=== PATIENT | male | born 1940 | race Caucasian/White ===

== ENCOUNTER 2019-11-29 06:05 | Observation (INO) | payer OTHER ==
[2019-11-22 16:43] LABS: BASOPHILS % (AUTO) 0.8 % (0-1); EOSINOPHILS # (AUTO) 0.1 X10'3 (0-0.9); EOSINOPHILS % (AUTO) 2.4 % (0-6); LYMPHOCYTES # (AUTO) 1.2 X10'3 (1.1-4.8); LYMPHOCYTES % (AUTO) 26.7 % (21-51); MEAN CORPUSCULAR HEMOGLOBIN 34.2 PG (27.0-31.0); MEAN CORPUSCULAR VOLUME 100.5 FL (78-98); MEAN PLATELET VOLUME 7.6 FL (7.4-10.4); MONOCYTES # (AUTO) 0.4 X10'3 (0-0.9); MONOCYTES % (AUTO) 8.7 % (2-12); NEUTROPHILS # (AUTO) 2.9 X10'3 (1.8-7.7); NEUTROPHILS % (AUTO) 61.4 % (42-75); PRE OP HEMATOCRIT 42.6 % (42.0-52.0); PRE OP HEMOGLOBIN 14.5 g/dL (14.0-17.9); PRE OP PLATELET COUNT 109 X10'3 (140-440); RED BLOOD COUNT 4.23 X10'6 (4.70-6.10); RED CELL DISTRIBUTION WIDTH 15.4 % (11.5-14.5)
[2019-11-22 16:54] LABS: PRE OP INR 1.2 INR; PRE OP PROTIME 11.9 SECONDS (9.0-12.0)
[2019-11-22 17:05] LABS: ALBUMIN 3.2 G/DL (3.4-5.0); ALKALINE PHOSPHATASE 83 IU/L (46-116); BLOOD UREA NITROGEN 14 MG/DL (7-18); BUN/CREATININE RATIO 11.5 (5.4-32.0); CALCIUM 9.5 MG/DL (8.5-10.1); CHLORIDE 104 MMOL/L (99-107); CREATININE 1.22 MG/DL (0.60-1.10); PRE OP ALT 38 U/L (30-65); PRE OP ANION GAP 6 (8-16); PRE OP AST 36 U/L (10-37); PRE OP BILIRUB, TOTAL 2.1 MG/DL (0.0-1.0); PRE OP GLUCOSE 99 MG/DL (70-104); PRE OP POTASSIUM 4.9 MMOL/L (3.4-5.1); PRE OP SODIUM 139 MMOL/L (135-145); TOTAL PROTEIN 6.5 G/DL (6.4-8.2); eGFR 58 ML/MIN
[~2019-11-29] VITALS: Ht 182.9 cm; Wt 105.0 kg
[2019-11-29] VITALS (19 sets, daily range): BP systolic 91–151; BP diastolic 52–99
[~2019-11-29 06:05] MED LIST: APIX5TAB3 PO; CHOL200012 PO; DILT-88 PO; MULT-1141 PO; acetaminophen 325mg tablet PO ONE; ceFAZolin 2gm in dextrose, iso 50 ML IV ONE; celeCOXIB 100mg capsule PO ONE; famotidine 20mg tablet PO ONE; gabapentin 300mg capsule PO ONE; ketorolac trometh. 30mg/ml inj. ONE; metoclopramide 5 mg/ml inj IV ONE; oxyCODONE SR 10mg (sust. release) tab -2 tabs (20mg) PO ONE; ringers solution, lacted 1,000 ML IV SCH; tranexamic acid inj. 1,000 MG in normal saline 100 ML IV ONE; vancomycin 1,500 MG in NS 500ml IV soln IV ONE
[2019-11-29] MEDS ORDERED: cloNIDine hcl/PF 100mcg/ml inj ONE (06:06)
[2019-11-29] MEDS ORDERED: epiNEPHrine 1 mg/ml inj ONE (06:06)
[2019-11-29] MEDS ORDERED: ROPIVAcaine 0.5% (5mg/ml) 30ml vial ONE (06:06)
[2019-11-29] MEDS ORDERED: vancomycin 1,000mg inj ONE (06:06)
[2019-11-29] MEDS ORDERED: bisacodyl 10mg suppository rectal RC PRN (06:40)
[2019-11-29] MEDS ORDERED: acetaminophen 325mg tablet PO PRN (06:40)
[2019-11-29] MEDS ORDERED: diphenhydrAMINE 25mg capsule PO PRN ×2 (06:40)
[2019-11-29] MEDS ORDERED: HYDROmorphone inj. 0.5 MG/0.5 ML DISP.SYRIN IV PRN (06:40)
[2019-11-29] MEDS ORDERED: oxyCODONE/APAP 10/325mg tablet PO PRN ×2 (06:40)
[2019-11-29] MEDS ORDERED: magnesium hydroxide 30ml (MOM) UD suspension PO PRN (06:40)
[2019-11-29] MEDS ORDERED: ondansetron/PF 4mg/2ml inj IV PRN ×2 (06:40→07:55)
[2019-11-29] MEDS ORDERED: HYDROmorphone 1 mg/ml syringe IV PRN (06:40)
[2019-11-29] MEDS ORDERED: LIDOcaine 1% (10mg/ml) 2ml vial ONE (06:41)
[2019-11-29] MEDS ORDERED: MIDAZolam 5mg/5ml vial ONE (07:15)
[2019-11-29] MEDS ORDERED: fentaNYL/PF 50MCG/1 ML 2ML syringe ONE (07:15)
[2019-11-29] MEDS ORDERED: ringers solution, lacted 1,000 ML IV SCH (07:53)
[2019-11-29] MEDS ORDERED: ROPIVAcaine 0.2%/PF PUMP/bolus 550 ML ADDCANAL SCH (07:54)
[2019-11-29] MEDS ORDERED: morphine 2 MG/ML inj. syringe IV PRN (07:55)
[2019-11-29] MEDS ORDERED: proCHLORperazine 10 MG/2 ml inj IV PRN (07:55)
[2019-11-29] MEDS ORDERED: ROPIVAcaine 0.2% (10 MG/5 ML) BOLUS INJECTION ADDCANAL PRN (07:55)
[2019-11-29] MEDS ORDERED: meperidine/PF 25mg/ml syringe IV PRN ×3 (07:55)
[2019-11-29] MEDS ORDERED: morphine 4 MG/ML inj SYRINge IV PRN (07:55)
[2019-11-29] MEDS: multivitamins, therapeutics tablet PO SCH (08:00)
[2019-11-29] MEDS: gabapentin 300mg capsule PO SCH ×3 (08:00→20:06)
[2019-11-29] MEDS: ascorbic acid 500mg tablet PO SCH ×2 (08:00→20:03)
[2019-11-29] MEDS: apixaban 5mg tablet PO SCH ×2 (08:00→12:36)
[2019-11-29] MEDS ORDERED: dexamethasone sod phosphate 4mg/ml inj. ONE (09:13)
[2019-11-29] MEDS ORDERED: ePHEDrine 50MG/ML INJ. ONE (09:13)
[2019-11-29] MEDS ORDERED: glycopyrrolate 0.2mg/ml inj ONE (09:14)
--- NOTE | 2019-11-29 09:32 | NUR ---
RECEIVED FROM OR VIA BED WITH OHTF ACCOMPANIED BY ANESTHESIOLOGIST DR WALKER, REPORT GIVEN. PT AWAKE AND ALERT AND DENIES PAIN AT THIS TIME. SKIN PINK AND WARM WITH GOOD CAP REFILL AND PRESENT PULSES. RIGHT KNEE .PROVENA DRESSING CDI AND TO SUCTION WITH KNEE WRAP AND POWDER PACK IN PLACE, SCDS ON. 18 GAUGE PIV L HAND PATENT AND RUNNING LR AT 100 ML/HR. ON Q CATHETER IN PLACE RLE
--- NOTE | 2019-11-29 10:52 | NUR ---
TRANSFERRED VIA BED WITH OHTF ACCOMPANIED BY MYSELF, REPORT GIVEN. PT AWAKE AND ALERT AND DENIES PAIN AT THIS TIME. SKIN PINK AND WARM WITH GOOD CAP REFILL AND PRESENT PULSES. RIGHT KNEE .SARMAD DRESSING CDI AND TO SUCTION WITH KNEE WRAP AND POWDER PACK IN PLACE, SCDS ON. 18 GAUGE PIV L HAND PATENT AND RUNNING LR AT 100 ML/HR. ON Q CATHETER IN PLACE RLE, TOLERATING FLUIDS, DISCHARGE CRITERIA MET
[2019-11-29] MEDS: potassium cl 20mEq in 1/2 NS 1,000 ML IV SCH ×3 (12:33→20:11)
[2019-11-29] MEDS ORDERED: tranexamic acid inj. 1,000 MG in normal saline 100ml IV soln 100 ML IV ONE (15:00)
[2019-11-29] MEDS: cefazolin/dext.iso 2gm/50ml 50 ML IV SCH (16:06)
--- NOTE | 2019-11-29 18:15 | NUR ---
RECEIVED REPORT FROM JUANJO ESCALANTE AND ASSUMED PATIENT CARE
--- NOTE | 2019-11-29 18:17 | NUR ---
Report to Lisa ESCALANTE
[2019-11-29] MEDS ORDERED: VANCOMYCIN 1,500MG inj. 1,500 MG in normal saline 500ml IV soln 500 ML IV SCH (20:00)
[2019-11-29] MEDS ORDERED: sennosides 8.6mg tablet PO SCH (21:00)
[2019-11-30] MEDS: cefazolin/dext.iso 2gm/50ml 50 ML IV SCH (00:24)
[2019-11-30 06:00] VITALS: BP 148/73
[2019-11-30] MEDS ORDERED: ONQPUMP ADDCANAL (07:56)
[2019-11-30] MEDS ORDERED: diltiazem CD 120mg capsule (once-daily) PO SCH (08:00)
[2019-11-30 08:02] LABS: ANION GAP 8 (8-16); CHLORIDE 103 MMOL/L (99-107); POTASSIUM 4.9 MMOL/L (3.5-5.1); SODIUM 132 MMOL/L (135-145); TOTAL CARBON DIOXIDE 21.4 MMOL/L (24-32)
[2019-11-30 08:05] LABS: BASOPHILS % (AUTO) 0.1 % (0-1); EOSINOPHILS % (AUTO) 0.1 % (0-6); HEMATOCRIT 38.1 % (42.0-52.0); HEMOGLOBIN 13.3 g/dl (14.0-17.9); LYMPHOCYTES # (AUTO) 0.8 X10'3 (1.1-4.8); LYMPHOCYTES % (AUTO) 8.1 % (21-51); MEAN CORPUSCULAR HEMOGLOBIN 34.6 PG (27.0-31.0); MEAN CORPUSCULAR HGB CONC 34.8 g/dL (33.0-36.5); MEAN CORPUSCULAR VOLUME 99.3 FL (78-98); MEAN PLATELET VOLUME 8.3 FL (7.4-10.4); MONOCYTES # (AUTO) 0.6 X10'3 (0-0.9); NEUTROPHILS # (AUTO) 8.2 X10'3 (1.8-7.7); NEUTROPHILS % (AUTO) 85.7 % (42-75); PLATELET COUNT 104 X10'3 (140-440); RED BLOOD COUNT 3.84 X10'6 (4.70-6.10); WHITE BLOOD COUNT 9.5 X10'3 (4.5-11.0)
[2019-11-30] MEDS: gabapentin 300mg capsule PO SCH (08:25)
[2019-11-30] MEDS: multivitamins, therapeutics tablet PO SCH (08:25)
[2019-11-30] MEDS: ascorbic acid 500mg tablet PO SCH (08:26)
[2019-11-30] MEDS: apixaban 5mg tablet PO SCH (08:26)
[2019-11-30] MEDS: potassium cl 20mEq in 1/2 NS 1,000 ML IV SCH (09:15)
[2019-11-30 09:56] VITALS: BP 119/54
[2019-11-30] MEDS ORDERED: celeCOXIB 100mg capsule PO SCH (20:00)
== END 2019-11-30 11:27 | disposition home or self-care (01) ==
LOC: PAS 06:05 → ORTHO 4S 06:42
PROVIDERS: ADMIT Orthopaedic Surgery; ATTEND Orthopaedic Surgery
DX: Z03.818 Encounter for observation for suspected exposure to other biological agents ruled out (principal); M17.11 Unilateral primary osteoarthritis, right knee; I48.91 Unspecified atrial fibrillation; D50.0 Iron deficiency anemia secondary to blood loss (chronic); Z79.01 Long term (current) use of anticoagulants
CPT/HCPCS: 27447; 36415; 71046; 73560; 80051; 80053; 82948; 85025; 85610; 85730; 86885; 86900; 86901; 87081; 96365; 96366; 96367; 96375; 97110; 97112; 97116; 97162; 97530; A6454; C1713; C1776; G0378; J0171; J0735; J1100; J1885; J2001; J2250; J2765; J2795; J3010; J3370; J7040; J7120; U0003; A4215; A6449; A7000; J3480; J3490